=== PATIENT | male | born 1980 | race Caucasian/White ===

== ENCOUNTER 2024-05-21 23:42 | Emergency (ER) | payer BC ==
[~2024-05-21] VITALS: Ht 175.3 cm; Wt 87.0 kg
[2024-05-22 00:01] VITALS: BP 161/99; PULSE 52; RESP 20; O2SAT 100
[2024-05-22] MEDS: MORPHINE SULFATE 4 MG/ML INJ (FOR IV/IM USE) IM ONE (01:01)
[2024-05-22] MEDS ORDERED: KETOROLAC 30MG/ML VIAL IV STA (02:57)
[2024-05-22] MEDS ORDERED: SODIUM CHLORIDE 0.9% 1,000 ML IV ONE (03:00)
== END 2024-05-22 03:26 | disposition left against medical advice (07) ==
LOC: ER 23:42
DX: M54.50 Low back pain, unspecified (principal); Z53.21 Procedure and treatment not carried out due to patient leaving prior to being seen by health care provider
CPT/HCPCS: 74176; J2270; Z7610; 99285